=== PATIENT | male | born 1960 | race Caucasian/White ===

== ENCOUNTER 2017-08-09 13:00 | Inpatient (IN) | payer OTHER ==
[~2017-08-09] VITALS: Ht 185.4 cm; Wt 135.8 kg
[2017-08-09 14:19] VITALS: BP 157/88
[2017-08-09] MEDS ORDERED: ENAL10TA PO (14:41)
[2017-08-09] MEDS ORDERED: DULO60CA63 PO (14:41)
[2017-08-09] MEDS ORDERED: QUET400T12 PO (14:41)
[2017-08-09] MEDS ORDERED: DIVA250T45 PO (14:41)
[2017-08-09] MEDS ORDERED: SILD100T71 PO (14:41)
[2017-08-09 15:22] LABS: APPEARANCE,URINE Clear (CLEAR); BILIRUBIN,URINE Negative (NEGATIVE); COLOR,URINE Yellow (YELLOW); GLUCOSE, URINE (UA) Negative (NEGATIVE); KETONES,URINE Negative (NEGATIVE); LEUKOCYTE ESTERASE ,URINE Trace (NEGATIVE); NITRATE,URINE Negative (NEGATIVE); OCCULT BLOOD,URINE Negative (NEGATIVE); PH,URINE 6.5 (5.0-8.0); PROTEIN,URINE Negative (NEGATIVE)
[2017-08-09 15:46] LABS: BACTERIA,URINE Rare /HPF (None Seen); RBC,URINE None Seen /HPF (0-1); SQUAMOUS EPITHELIAL CELL,UR Rare /HPF (0-2); WBC,URINE 0-1 /HPF (0-1)
[2017-08-17] MEDS ORDERED: CEFAZOLIN SODIUM 1 GM VIAL IVP SCH (06:00)
[2017-08-19] VITALS (24 sets, daily range): BP systolic 101–160; BP diastolic 58–96
[2017-08-19] MEDS ORDERED: LACTATED RINGERS 1000ML 1,000 ML IV ONE (10:13)
[2017-08-19] MEDS ORDERED: CEFAZOLIN SODIUM 1 GM VIAL ONE ×2 (10:51→21:06)
[2017-08-19] MEDS ORDERED: ROPIVACAINE 0.5% 5MG/ML 30ML IJ ONE ×2 (10:56→10:58)
[2017-08-19] MEDS ORDERED: SUCCINYLCHOLINE CHLORIDE 20 MG/ML 10 ML VIAL ONE (10:58)
[2017-08-19] MEDS ORDERED: PROPOFOL 10 MG/ML 20ML VIAL IV ONE ×2 (10:58→14:24)
[2017-08-19] MEDS ORDERED: LIDOCAINE PF 2% 5ML ABBOJECT ONE (10:58)
[2017-08-19] MEDS ORDERED: FENTANYL CITRATE PF 50 MCG/1 ML 2ML VIAL ONE ×2 (10:59→12:23)
[2017-08-19] MEDS ORDERED: MIDAZOLAM HCL 1 MG/ML 2ML VIAL ONE (10:59)
[2017-08-19] MEDS ORDERED: EPHEDRINE SULFATE 50 MG/ML AMPULE ONE (11:40)
[2017-08-19] MEDS ORDERED: GABA300S PO (12:29)
[2017-08-19] MEDS ORDERED: CELE200 PO ×2 (12:29)
[2017-08-19] MEDS ORDERED: ACET-2743 PO ×3 (12:29)
[2017-08-19] MEDS ORDERED: GABA-531 PO (12:29)
[2017-08-19] MEDS: ACETAMINOPHEN 325 MG TAB PO SCH ×3 (14:30→23:48)
[2017-08-19] MEDS ORDERED: POTASSIUM CHLORIDE 20MEQ/100ML 100 ML IV PRN (14:30)
[2017-08-19] MEDS ORDERED: POTASSIUM CHLORIDE 10% ELIXIR 20 MEQ/15 ML UDCUP PO PRN (14:30)
[2017-08-19] MEDS ORDERED: DIPHENHYDRAMINE HCL 25 MG CAPSULE PO PRN (14:30)
[2017-08-19] MEDS ORDERED: CALCIUM CARBONATE 500 MG TABLET PO PRN (14:30)
[2017-08-19] MEDS ORDERED: FERROUS FUMARATE 324 MG TABLET PO PRN (14:30)
[2017-08-19] MEDS ORDERED: DiphenhydrAMINE HCL 50 MG/ML VIAL IVP PRN (14:30)
[2017-08-19] MEDS ORDERED: LIDOCAINE HCL-MPF 1% 2ML VIAL IVP PRN (14:30)
[2017-08-19] MEDS ORDERED: MEPERIDINE-PF 25 MG/ML SYG ONE (14:56)
[2017-08-19] MEDS: SODIUM CHLORIDE 0.9% 1000ML 1,000 ML IV SCH ×2 (15:56→23:48)
[2017-08-19] MEDS: OXYCODONE HCL 5 MG TAB PO PRN ×2 (17:46→23:46)
[2017-08-19] MEDS: TRAMADOL HCL 50 MG TABLET PO PRN (19:24)
[2017-08-19] MEDS: CEFAZOLIN 3GM /D5W 100ML 100 ML IV SCH (19:30)
[2017-08-19] MEDS: FAMOTIDINE 20MG TAB 20 MG TAB PO SCH (21:10)
[2017-08-19] MEDS: CELECOXIB 200 MG CAP PO SCH (21:10)
[2017-08-19] MEDS: ASPIRIN 325 MG TABLET PO SCH (21:10)
[2017-08-19] MEDS: PREGABALIN 25 MG CAP PO SCH (21:10)
[2017-08-20] MEDS: CEFAZOLIN 3GM /D5W 100ML 100 ML IV SCH (03:30)
[2017-08-20] MEDS ORDERED: CEFAZOLIN SODIUM 1 GM VIAL ONE (04:47)
[2017-08-20] MEDS: TRAMADOL HCL 50 MG TABLET PO PRN (04:51)
[2017-08-20 04:53] VITALS: BP 112/56
[2017-08-20 05:01] LABS: HEMATOCRIT 32.2 % (42-54); MEAN CORPUSCULAR HEMOGLOBIN 32.1 pg (27.0-33.0); MEAN CORPUSCULAR HGB CONC 34.3 g/dL (32.0-36.0); MEAN CORPUSCULAR VOLUME 93.4 fL (79-99); PLATELET COUNT (AUTO) 166 K/uL (130-400); RED BLOOD CELL COUNT(AUTO) 3.45 MIL/uL (4.50-6.20); RED CELL DISTRIBUTION WIDTH 13.5 % (11.0-15.5); WHITE BLOOD COUNT (AUTO) 10.4 K/uL (4.8-10.8)
[2017-08-20 05:10] LABS: INR 1.02 (0.85-1.15); PROTHROMBIN TIME 10.7 SEC (9.6-11.6)
[2017-08-20 05:12] LABS: CREATININE 0.9 mg/dL (0.5-1.5); POTASSIUM 3.9 mmol/L (3.5-5.1)
[2017-08-20] MEDS: ACETAMINOPHEN 325 MG TAB PO SCH ×3 (06:07→17:58)
[2017-08-20 08:11] VITALS: BP 116/59
[2017-08-20] MEDS: CELECOXIB 200 MG CAP PO SCH ×2 (08:54→20:22)
[2017-08-20] MEDS: ASPIRIN 325 MG TABLET PO SCH ×2 (08:54→20:22)
[2017-08-20] MEDS: PREGABALIN 25 MG CAP PO SCH ×2 (08:54→19:31)
[2017-08-20] MEDS: OXYCODONE HCL 5 MG TAB PO PRN ×2 (08:54→19:32)
[2017-08-20] MEDS: DULOXETINE HCL 30 MG CAP PO SCH (08:55)
[2017-08-20] MEDS: ENALAPRIL MALEATE 10 MG TABLET PO SCH ×2 (08:55→19:32)
[2017-08-20] MEDS: POLYETHYLENE GLYCOL 3350 17 GM POWD.PACK PO SCH (08:55)
[2017-08-20] MEDS: FAMOTIDINE 20MG TAB 20 MG TAB PO SCH ×2 (08:55→19:31)
[2017-08-20] MEDS: SODIUM CHLORIDE 0.9% 1000ML 1,000 ML IV SCH (10:18)
[2017-08-20 11:55] VITALS: BP 114/61
[2017-08-20] MEDS: PSYLLIUM SEED 1 EACH PACKET PO SCH (12:31)
[2017-08-20 16:29] VITALS: BP 146/72
[2017-08-20 18:54] VITALS: BP 162/83
[2017-08-20] MEDS ORDERED: DIVALPROEX SODIUM 250 MG TABLET.DR PO SCH (21:00)
[2017-08-20] MEDS ORDERED: QUETIAPINE FUMARATE 100 MG TAB PO SCH (21:00)
[2017-08-20 23:40] VITALS: BP 118/62
[2017-08-21 03:34] VITALS: BP 115/68
[2017-08-21 05:19] LABS: HEMATOCRIT 27.2 % (42-54); MEAN CORPUSCULAR HEMOGLOBIN 34.7 pg (27.0-33.0); MEAN CORPUSCULAR HGB CONC 37.1 g/dL (32.0-36.0); MEAN CORPUSCULAR VOLUME 93.5 fL (79-99); PLATELET COUNT (AUTO) 124 K/uL (130-400); RED BLOOD CELL COUNT(AUTO) 2.91 MIL/uL (4.50-6.20); RED CELL DISTRIBUTION WIDTH 13.8 % (11.0-15.5); WHITE BLOOD COUNT (AUTO) 9.3 K/uL (4.8-10.8)
[2017-08-21 05:27] LABS: INR 1.02 (0.85-1.15); PROTHROMBIN TIME 10.7 SEC (9.6-11.6)
[2017-08-21 05:29] LABS: CREATININE 0.9 mg/dL (0.5-1.5); POTASSIUM 3.7 mmol/L (3.5-5.1)
[2017-08-21] MEDS: OXYCODONE HCL 5 MG TAB PO PRN (05:54)
[2017-08-21] MEDS: ACETAMINOPHEN 325 MG TAB PO SCH ×3 (05:54→12:14)
[2017-08-21] MEDS: POTASSIUM CHLORIDE 20 MEQ ERTAB PO PRN ×2 (05:55→08:05)
[2017-08-21 07:59] VITALS: BP 134/73
[2017-08-21] MEDS: PREGABALIN 25 MG CAP PO SCH (08:04)
[2017-08-21] MEDS: POLYETHYLENE GLYCOL 3350 17 GM POWD.PACK PO SCH (08:04)
[2017-08-21] MEDS: DULOXETINE HCL 30 MG CAP PO SCH (08:04)
[2017-08-21] MEDS: CELECOXIB 200 MG CAP PO SCH (08:04)
[2017-08-21] MEDS: ENALAPRIL MALEATE 10 MG TABLET PO SCH (08:04)
[2017-08-21] MEDS: FAMOTIDINE 20MG TAB 20 MG TAB PO SCH (08:04)
[2017-08-21] MEDS: TRAMADOL HCL 50 MG TABLET PO PRN (08:04)
[2017-08-21] MEDS: ASPIRIN 325 MG TABLET PO SCH (08:04)
[2017-08-21 11:27] VITALS: BP 109/53
[2017-08-21] MEDS ORDERED: BISACODYL 5 MG TABLET.DR PO PRN (12:10)
[2017-08-21] MEDS: PSYLLIUM SEED 1 EACH PACKET PO SCH (12:13)
[2017-08-21 16:22] VITALS: BP 133/75
[2017-08-22] MEDS ORDERED: BISACODYL 10 MG SUPP.RECT RC PRN (14:30)
== END 2017-08-21 18:33 | disposition home or self-care (01) | DRG 470 ==
LOC: EDSTATUS 13:00 → EDBD 13:00 → DAHIP 08-19 08:29 → 4CH 08-19 14:48 → 4AH 08-19 21:00
PROVIDERS: ADMIT Orthopaedic Surgery; ATTEND Orthopaedic Surgery
PROC: 0SRD0JZ Replacement of Left Knee Joint with Synthetic Substitute, Open Approach (ICD-10-PCS; principal; 2017-08-19 10:00)
DX: M17.12 Unilateral primary osteoarthritis, left knee (principal); E66.01 Morbid (severe) obesity due to excess calories; Z68.39 Body mass index [BMI] 39.0-39.9, adult; F20.9 Schizophrenia, unspecified; F31.9 Bipolar disorder, unspecified; F43.10 Post-traumatic stress disorder, unspecified; G47.33 Obstructive sleep apnea (adult) (pediatric); I10 Essential (primary) hypertension; Z87.891 Personal history of nicotine dependence; Z88.5 Allergy status to narcotic agent; Z88.8 Allergy status to other drugs, medicaments and biological substances; Z28.21 Immunization not carried out because of patient refusal
CPT/HCPCS: 36415; 76000; 80048; 81001; 85027; 85610; 87641; 88304; 88311; 97039; A4218; C1713; J0330; J0690; J2001; J2175; J2250; J2704; J2795; J3010; J3490; J7030; J7120